=== PATIENT | female | born 1950 | race African-American/Black ===

== ENCOUNTER 2022-02-24 20:30 | Inpatient (IN) | payer MEDICARE, OTHER ==
[~2022-02-24] VITALS: Ht 165.1 cm; Wt 113.4 kg
[2022-02-24] MEDS ORDERED: IV NORMAL SALINE 1000 ML BAG IV ONE (21:15)
--- NOTE | 2022-02-24 22:12 | NUR ---
Rojas nurse from [facility] were the patient came from gave some Hx for patient.
[2022-02-24 22:29] LABS: HEMATOCRIT 33.8 % (31.2-41.9); MEAN CORPUSCULAR HEMOGLOBIN 28.3 uug (24.7-32.8); MEAN CORPUSCULAR VOLUME 88.7 fL (75.5-95.3); PLATELET COUNT (AUTO) 485 K/uL (179-408)
[2022-02-24 22:43] LABS: ALANINE AMINOTRANSFERASE 7 U/L (14-59); ALKALINE PHOSPHATASE 91 U/L (50-136); ASPARTATE AMINOTRANSFERASE 8 U/L (15-37); BILIRUBIN,DIRECT 0.1 mg/dL (0.0-0.2); BILIRUBIN,TOTAL 0.1 mg/dL (0.2-1.0); CARBON DIOXIDE 32 mmol/L (21-32); CHLORIDE 99 mmol/L (98-107); CREATININE 1.5 mg/dL (0.6-1.3); GLUCOSE 262 mg/dL (74-106); POTASSIUM 4.9 mmol/L (3.5-5.1); TOTAL PROTEIN, SERUM 8.1 g/dL (6.4-8.2); UREA NITROGEN, BLOOD 30 mg/dL (7-18)
[2022-02-24 23:06] LABS: *BILIRUBIN,URIN NEGATIVE (NEGATIVE); *BLOOD, URINE 3+ (NEGATIVE); *KETONES,URINE NEGATIVE (NEGATIVE); *UROBILINOGEN,URINE 0.2 E.U./dl (NORMAL); LEUKOCYTE ESTERASE ,URINE 1+ (NEGATIVE); NITRITE, URINE NEGATIVE (NEGATIVE); UGLUCOSE NEGATIVE (NEGATIVE)
[2022-02-24 23:07] LABS: *COLOR,URINE LIGHT YELLOW (YELLOW)
[2022-02-24 23:08] LABS: *CLARITY,URINE SLIGHTLY CLOUDY (CLEAR)
[2022-02-24 23:26] LABS: RBC,URINE TNTC /HPF (0-3); WBC,URINE 20-50 /HPF (0-3)
[2022-02-24 23:27] LABS: BACTERIA,URINE MODERATE /HPF (NONE SEEN); SQUAMOUS EPITHELIAL CELL,UR MANY /HPF (NONE SEEN)
[2022-02-25] MEDS ORDERED: LIDOCAINE HCL 1% 20 ML VIAL IJ ONE
[2022-02-25] MEDS ORDERED: LIDOCAINE HCL 1% 20 ML VIAL ONE (00:05)
[2022-02-25] MEDS ORDERED: diclofenac TOP (00:52)
[2022-02-25] MEDS ORDERED: CARB15DR OP (00:52)
[2022-02-25] MEDS ORDERED: SIME80TA PO (00:52)
[2022-02-25] MEDS ORDERED: LIDO30AD10 TD (00:52)
[2022-02-25] MEDS ORDERED: ETHA25TA4 PO (00:52)
[2022-02-25] MEDS ORDERED: ROSU10TA2 PO (00:52)
[2022-02-25] MEDS ORDERED: HYDR200T4 PO (00:52)
[2022-02-25] MEDS ORDERED: CLOP75TA33 PO (00:52)
[2022-02-25] MEDS ORDERED: CETI10CA8 PO (00:52)
[2022-02-25] MEDS ORDERED: MAGN400C PO (00:52)
[2022-02-25] MEDS ORDERED: GABA-532 PO (00:52)
[2022-02-25] MEDS ORDERED: FAMO20TA8 PO (00:52)
[2022-02-25] MEDS ORDERED: AMLO-212 PO (00:52)
[2022-02-25] MEDS ORDERED: FLUT1DIS27 IH (00:52)
[2022-02-25] MEDS ORDERED: FOLI1TAB94 PO (00:52)
[2022-02-25] MEDS ORDERED: MELA3TAB41 PO (00:52)
[2022-02-25] MEDS ORDERED: CYAN100T44 PO (00:52)
[2022-02-25] MEDS ORDERED: POLY17PO4 PO (00:52)
[2022-02-25] MEDS ORDERED: METF-442 PO (00:52)
[2022-02-25] MEDS ORDERED: SEMA0.25 SQ (00:52)
[2022-02-25] MEDS ORDERED: ACET-73 PO (00:52)
[2022-02-25] MEDS ORDERED: SACU1TAB PO (00:52)
[2022-02-25] MEDS ORDERED: CHOL400T28 PO (00:52)
[2022-02-25] MEDS ORDERED: DOCU283E7 PR (00:52)
[2022-02-25] MEDS ORDERED: AZITHROMYCIN IV 500 MG in IV DEXTROSE 5% 250 ML IV ONE (01:45)
[2022-02-25] MEDS ORDERED: CEFTRIAXONE 1 G in IV DEXTROSE 5% 50 ML IV ONE (01:45)
[2022-02-25] MEDS ORDERED: IV NS 1000 ML 1,000 ML IV ONE (02:30)
[2022-02-25] MEDS ORDERED: CEFTRIAXONE /D5W 50ML IVPB **ER PYXIS IV ONE (02:37)
[2022-02-25] MEDS ORDERED: AZITHROMYCIN 500MG/ D5W 250ML IVPB **ER PYXIS ONLY IV ONE (02:37)
--- NOTE | 2022-02-25 02:42 | NUR ---
No changes in LOC. No AMS. A/Ox1. Sammarinese speaking. Non-ambulatory.
[2022-02-25] MEDS ORDERED: MORPHINE SULFATE 2 MG/1 ML DISP.SYRIN ONE (03:55)
[2022-02-25] MEDS ORDERED: MORPHINE SULFATE 2 MG/1 ML DISP.SYRIN IV ONE (04:00)
--- NOTE | 2022-02-25 04:04 | NUR ---
Called [facility] for panel call. Dr. Hopkins coupon clerk.
[2022-02-25] MEDS ORDERED: MORPHINE SULFATE 2 MG/1 ML DISP.SYRIN IV PRN (04:30)
[2022-02-25] MEDS ORDERED: DEXTROSE 50% 50 ML DISP.SYRIN IV PRN (04:30)
[2022-02-25] MEDS ORDERED: ALBUTEROL SULFATE 8 GM HFA.AER.AD IH PRN (04:30)
[2022-02-25] MEDS ORDERED: ONDANSETRON 4 MG/2 ML VIAL IV PRN (04:30)
[2022-02-25] MEDS ORDERED: hydrALAZINE HCL 20 MG/1 ML VIAL IV PRN (04:30)
[2022-02-25] MEDS ORDERED: ACETAMINOPHEN 325 MG TABLET PO PRN (04:30)
--- NOTE | 2022-02-25 04:30 | NUR ---
Patient will be transfered to [address] [place] [address] during day shift. welfare project manager is unable to accept anymore pateints at this time.
[2022-02-25] MEDS ORDERED: GABAPENTIN 300 MG CAPSULE ONE (06:21)
[2022-02-25] MEDS: GABAPENTIN 300 MG CAPSULE PO SCH ×3 (06:24→21:00)
[2022-02-25] MEDS: BLOOD SUGAR DIAGNOSTIC 1 EACH STRIP VI SCH ×4 (07:30→20:40)
[2022-02-25] MEDS ORDERED: ALBUTEROL SULFATE 2.5 MG/3 ML NEBU NEB PRN (08:00)
[2022-02-25] MEDS ORDERED: LIDOCAINE 5% PATCH TD ONE (08:55)
[2022-02-25] MEDS ORDERED: MIRALAX 17 GM POWD.PACK ONE (08:55)
[2022-02-25] MEDS ORDERED: FAMOTIDINE 20 MG TABLET ONE (08:55)
[2022-02-25] MEDS ORDERED: CHOLECALCIFEROL 1,000 UNIT TABLET ONE (08:55)
[2022-02-25] MEDS ORDERED: CLOPIDOGREL 75 MG TABLET ONE (08:55)
[2022-02-25] MEDS ORDERED: MAGNESIUM OXIDE 400 MG TABLET ONE (08:55)
[2022-02-25] MEDS ORDERED: SIMETHICONE 80 MG TAB.CHEW ONE (08:56)
[2022-02-25] MEDS ORDERED: CYANOCOBALAMIN 1,000 MCG TABLET ONE (08:56)
[2022-02-25] MEDS ORDERED: HEPARIN SODIUM,PORCINE 5,000 UNITS/ML VIAL ONE (08:56)
[2022-02-25] MEDS ORDERED: AMLODIPINE 5 MG TABLET ONE (08:56)
[2022-02-25] MEDS ORDERED: FOLIC ACID 1 MG TABLET ONE (08:56)
[2022-02-25] MEDS: FAMOTIDINE 20 MG TABLET PO SCH (08:59)
[2022-02-25] MEDS: SIMETHICONE 80 MG TAB.CHEW PO SCH (08:59)
[2022-02-25] MEDS: MIRALAX 17 GM POWD.PACK PO SCH (08:59)
[2022-02-25] MEDS: AMLODIPINE 5 MG TABLET PO SCH (08:59)
[2022-02-25] MEDS: CEFEPIME HCL 2 G in IV DEXTROSE 5% 100 ML IV SCH ×3 (08:59→20:17)
[2022-02-25] MEDS: MAGNESIUM OXIDE 400 MG TABLET PO SCH ×2 (08:59→18:04)
[2022-02-25] MEDS: FLUTICASONE/VILANTEROL 1 EACH BLST.W.DEV INH SCH (08:59)
[2022-02-25] MEDS: FOLIC ACID 1 MG TABLET PO SCH (08:59)
[2022-02-25] MEDS: CHOLECALCIFEROL 1,000 UNIT TABLET PO SCH (09:00)
[2022-02-25] MEDS: CLOPIDOGREL 75 MG TABLET PO SCH (09:00)
[2022-02-25] MEDS ORDERED: CEFEPIME HCL 1 G in IV DEXTROSE 5% 50 ML IV SCH (09:00)
[2022-02-25] MEDS: HEPARIN SODIUM,PORCINE 5,000 UNITS/ML VIAL SQ SCH ×2 (09:00→18:05)
[2022-02-25] MEDS: CYANOCOBALAMIN 1,000 MCG TABLET PO SCH (09:00)
[2022-02-25] MEDS ORDERED: LIDOCAINE 5% PATCH TD SCH (09:00)
[2022-02-25] MEDS ORDERED: FLUTICASONE/SALMETEROL 250/50 INHALER INH SCH (09:00)
[2022-02-25] MEDS: HYDROXYCHLOROQUINE SULFATE 200 MG TABLET PO SCH (09:00)
[2022-02-25 11:52] VITALS: BP 151/75
[2022-02-25] MEDS: INSULIN REGULAR, HUMAN 300 UNIT/3 ML VIAL SQ PRN ×3 (11:54→20:43)
--- NOTE | 2022-02-25 13:00 | NUR ---
Patient is able to swallow and chew her food as well as able to communicate
--- NOTE | 2022-02-25 13:00 | NUR ---
Upon coming into the 3rd floor patient is alert and was responsive to questions asked when obtaining history. 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 she is fall risk. Fed patient, she was able to chew and swallow her her lunch. -KG (NS)
[2022-02-25] MEDS ORDERED: FLUT1DIS28 IH (16:09)
[2022-02-25] MEDS ORDERED: INSU100V11 SQ (16:13)
[2022-02-25] MEDS ORDERED: IPRA0.2S48 NEB (16:13)
[2022-02-25] MEDS ORDERED: LEVA1.2543 IH (16:13)
[2022-02-25] MEDS ORDERED: METH57CR22 TP (16:13)
[2022-02-25] MEDS ORDERED: LEVA1.2528 IH (16:13)
[2022-02-25] MEDS ORDERED: SODI15VI10 IH (16:15)
[2022-02-25] MEDS ORDERED: MAG355OR18 PO (16:15)
[2022-02-25] MEDS ORDERED: CHLO473M3 MM (16:15)
[2022-02-25] MEDS ORDERED: TIOT18CA3 IH (16:16)
[2022-02-25 16:35] VITALS: BP 148/74
--- NOTE | 2022-02-25 18:36 | NUR ---
no distress noted, tele remains SR, fed with meals- tolerated well pate cath draining yellow urine with good output, all needs attended and met, repositioned q2h with heel protectors on,
[2022-02-25 20:00] VITALS: BP 141/69
[2022-02-25] MEDS: ATORVASTATIN 20 MG TABLET PO SCH (20:16)
[2022-02-25] MEDS: METOPROLOL TARTRATE 25 MG TABLET PO SCH (20:16)
[2022-02-25] MEDS: MELATONIN 3 MG TABLET PO SCH (20:16)
[2022-02-25] MEDS ORDERED: Medication Not On Formulary EA (Rosuvastatin Calcium (Crestor) 10 MG) PO SCH (21:00)
[2022-02-26] VITALS: BP 140/72
[2022-02-26 04:00] VITALS: BP 140/76
[2022-02-26] MEDS: GABAPENTIN 300 MG CAPSULE PO SCH ×3 (06:29→22:15)
[2022-02-26] MEDS: BLOOD SUGAR DIAGNOSTIC 1 EACH STRIP VI SCH ×4 (06:54→21:08)
[2022-02-26] MEDS: INSULIN REGULAR, HUMAN 300 UNIT/3 ML VIAL SQ PRN ×4 (07:57→21:15)
[2022-02-26] MEDS: FLUTICASONE/VILANTEROL 1 EACH BLST.W.DEV INH SCH (09:00)
[2022-02-26] MEDS: CEFEPIME HCL 2 G in IV DEXTROSE 5% 100 ML IV SCH ×2 (10:13→20:44)
[2022-02-26] MEDS: CHOLECALCIFEROL 1,000 UNIT TABLET PO SCH (10:14)
[2022-02-26] MEDS: MIRALAX 17 GM POWD.PACK PO SCH (10:14)
[2022-02-26] MEDS: LIDOCAINE 5% PATCH TD SCH (10:14)
[2022-02-26] MEDS: SIMETHICONE 80 MG TAB.CHEW PO SCH (10:15)
[2022-02-26] MEDS: CLOPIDOGREL 75 MG TABLET PO SCH (10:15)
[2022-02-26] MEDS: FAMOTIDINE 20 MG TABLET PO SCH (10:15)
[2022-02-26] MEDS: FOLIC ACID 1 MG TABLET PO SCH (10:15)
[2022-02-26] MEDS: METOPROLOL TARTRATE 25 MG TABLET PO SCH ×2 (10:16→20:45)
[2022-02-26] MEDS: AMLODIPINE 5 MG TABLET PO SCH (10:16)
[2022-02-26] MEDS: CYANOCOBALAMIN 1,000 MCG TABLET PO SCH (10:16)
[2022-02-26] MEDS: MAGNESIUM OXIDE 400 MG TABLET PO SCH ×2 (10:16→16:43)
[2022-02-26] MEDS: HYDROXYCHLOROQUINE SULFATE 200 MG TABLET PO SCH (10:17)
[2022-02-26] MEDS: HEPARIN SODIUM,PORCINE 5,000 UNITS/ML VIAL SQ SCH ×2 (10:18→16:43)
[2022-02-26 12:05] VITALS: BP 139/56
[2022-02-26 16:21] VITALS: BP 132/67
[2022-02-26 20:00] VITALS: BP 142/58
[2022-02-26] MEDS: MELATONIN 3 MG TABLET PO SCH (20:45)
[2022-02-26] MEDS: ATORVASTATIN 20 MG TABLET PO SCH (20:45)
[2022-02-27] VITALS: BP 108/58
[2022-02-27 04:00] VITALS: BP 124/67
[2022-02-27] MEDS: GABAPENTIN 300 MG CAPSULE PO SCH ×3 (06:05→22:13)
[2022-02-27] MEDS: BLOOD SUGAR DIAGNOSTIC 1 EACH STRIP VI SCH ×4 (06:37→20:35)
--- NOTE | 2022-02-27 07:17 | NUR ---
Slept intermittently, easy to arouse alert and verbally conversant. No resp distress noted. Needs assessed and attended to. Kept bed in locked and low position with call light within easy reach.
[2022-02-27] MEDS: INSULIN REGULAR, HUMAN 300 UNIT/3 ML VIAL SQ PRN ×4 (08:12→20:55)
[2022-02-27] MEDS: CYANOCOBALAMIN 1,000 MCG TABLET PO SCH (09:23)
[2022-02-27] MEDS: CHOLECALCIFEROL 1,000 UNIT TABLET PO SCH (09:23)
[2022-02-27] MEDS: MIRALAX 17 GM POWD.PACK PO SCH (09:23)
[2022-02-27] MEDS: LIDOCAINE 5% PATCH TD SCH (09:23)
[2022-02-27] MEDS: AMLODIPINE 5 MG TABLET PO SCH (09:24)
[2022-02-27] MEDS: FOLIC ACID 1 MG TABLET PO SCH (09:24)
[2022-02-27] MEDS: FAMOTIDINE 20 MG TABLET PO SCH (09:24)
[2022-02-27] MEDS: SIMETHICONE 80 MG TAB.CHEW PO SCH (09:24)
[2022-02-27] MEDS: METOPROLOL TARTRATE 25 MG TABLET PO SCH ×2 (09:24→20:51)
[2022-02-27] MEDS: CLOPIDOGREL 75 MG TABLET PO SCH (09:24)
[2022-02-27] MEDS: MAGNESIUM OXIDE 400 MG TABLET PO SCH ×2 (09:25→16:59)
[2022-02-27] MEDS: FLUTICASONE/VILANTEROL 1 EACH BLST.W.DEV INH SCH (09:25)
[2022-02-27] MEDS: CEFEPIME HCL 2 G in IV DEXTROSE 5% 100 ML IV SCH ×2 (09:25→20:49)
[2022-02-27] MEDS: MUPIROCIN 2% OINT 22 GM TUBE NS SCH ×2 (09:26→20:52)
[2022-02-27] MEDS: HYDROXYCHLOROQUINE SULFATE 200 MG TABLET PO SCH (09:27)
[2022-02-27] MEDS: HEPARIN SODIUM,PORCINE 5,000 UNITS/ML VIAL SQ SCH ×2 (09:27→17:01)
--- NOTE | 2022-02-27 10:33 | NUR ---
picc line insertion ordered
[2022-02-27 11:36] VITALS: BP 119/68
[2022-02-27 11:45] LABS: HEMATOCRIT 31.7 % (31.2-41.9); MEAN CORPUSCULAR HEMOGLOBIN 28.5 uug (24.7-32.8); PLATELET COUNT (AUTO) 423 K/uL (179-408)
[2022-02-27 11:51] LABS: BILIRUBIN,TOTAL 0.1 mg/dL (0.2-1.0); CREATININE 1.4 mg/dL (0.6-1.3); MAGNESIUM 2.2 mg/dL (1.8-2.4); POTASSIUM 4.5 mmol/L (3.5-5.1); TOTAL PROTEIN, SERUM 7.7 g/dL (6.4-8.2)
[2022-02-27 12:20] LABS: THYROID STIMULATING HORMONE 1.743 mIU/mL (0.358-3.740)
[2022-02-27 15:16] VITALS: BP 121/73
[2022-02-27] MEDS: PROTEIN SUPPLEMENT (PROSTAT) 30 ML LIQUID PO SCH (17:10)
--- NOTE | 2022-02-27 18:00 | NUR ---
PT COMPLAIN OF DISCOMFORT ON LEFT GROIN AREA. REMOVED 3 LUMEN FEMORAL CATH.
[2022-02-27 20:00] VITALS: BP 148/71
[2022-02-27] MEDS: MELATONIN 3 MG TABLET PO SCH (20:51)
[2022-02-27] MEDS: ATORVASTATIN 20 MG TABLET PO SCH (20:51)
[2022-02-28 04:00] VITALS: BP 157/67
[2022-02-28] MEDS: GABAPENTIN 300 MG CAPSULE PO SCH ×3 (05:41→22:01)
[2022-02-28] MEDS: BLOOD SUGAR DIAGNOSTIC 1 EACH STRIP VI SCH ×4 (06:39→21:10)
[2022-02-28] MEDS: SIMETHICONE 80 MG TAB.CHEW PO SCH (08:57)
[2022-02-28] MEDS: CLOPIDOGREL 75 MG TABLET PO SCH (08:58)
[2022-02-28] MEDS: CHOLECALCIFEROL 1,000 UNIT TABLET PO SCH (08:58)
[2022-02-28] MEDS: CYANOCOBALAMIN 1,000 MCG TABLET PO SCH (08:58)
[2022-02-28] MEDS: FOLIC ACID 1 MG TABLET PO SCH (08:58)
[2022-02-28] MEDS: FAMOTIDINE 20 MG TABLET PO SCH (08:58)
[2022-02-28] MEDS: METOPROLOL TARTRATE 25 MG TABLET PO SCH ×2 (08:58→21:10)
[2022-02-28] MEDS: MAGNESIUM OXIDE 400 MG TABLET PO SCH ×2 (08:58→16:56)
[2022-02-28] MEDS: HEPARIN SODIUM,PORCINE 5,000 UNITS/ML VIAL SQ SCH ×2 (08:59→16:57)
[2022-02-28] MEDS: AMLODIPINE 5 MG TABLET PO SCH (08:59)
[2022-02-28] MEDS: CEFEPIME HCL 2 G in IV DEXTROSE 5% 100 ML IV SCH ×2 (09:00→21:08)
[2022-02-28] MEDS: LIDOCAINE 5% PATCH TD SCH (09:01)
[2022-02-28] MEDS: MIRALAX 17 GM POWD.PACK PO SCH (09:02)
[2022-02-28] MEDS: PROTEIN SUPPLEMENT (PROSTAT) 30 ML LIQUID PO SCH ×2 (09:02→16:56)
[2022-02-28] MEDS: HYDROXYCHLOROQUINE SULFATE 200 MG TABLET PO SCH (09:02)
[2022-02-28] MEDS: INSULIN REGULAR, HUMAN 300 UNIT/3 ML VIAL SQ PRN ×4 (09:06→21:15)
[2022-02-28] MEDS: FLUTICASONE/VILANTEROL 1 EACH BLST.W.DEV INH SCH (09:10)
[2022-02-28] MEDS: MUPIROCIN 2% OINT 22 GM TUBE NS SCH ×2 (09:11→21:08)
[2022-02-28 11:42] VITALS: BP 149/73
--- NOTE | 2022-02-28 12:11 | NUR ---
WOUND CARE CONSULT: PT PRESENTS WITH SACRAL INTACT DEEP TISSUE INJURY WITH SCARRING, PRESENT ON ADMISSION. RECOMMENDATIONS MADE FOR SKIN PROTECTION. DISCUSSED WITH NURSING STAFF. IN AGREEEMNT WITH PLAN OF CARE. Addendum: 02/28/22 at 1213 by EDDIE VILLATORO RN Amended: Links added.
[2022-02-28 15:07] VITALS: BP 132/67
--- NOTE | 2022-02-28 18:46 | NUR ---
PT IS A/O X 4, ABLE TO COMMUNICATE NEEDS, PT IS COOPERATIVE WITH CARE, TAKES MEDICATION WHOLE. WOUND CONSULT COMPLETED TODAY , COMFORT MEASURES PROVIDED, CALL LIGHT WITHIN REACH, WILL ENDORSE.
[2022-02-28 20:00] VITALS: BP 140/72
[2022-02-28] MEDS: MELATONIN 3 MG TABLET PO SCH (21:09)
[2022-02-28] MEDS: ATORVASTATIN 20 MG TABLET PO SCH (21:09)
[2022-03-01 04:36] VITALS: BP 157/65
[2022-03-01] MEDS: GABAPENTIN 300 MG CAPSULE PO SCH ×3 (05:47→21:52)
[2022-03-01] MEDS: BLOOD SUGAR DIAGNOSTIC 1 EACH STRIP VI SCH ×4 (06:47→21:13)
[2022-03-01] MEDS: INSULIN REGULAR, HUMAN 300 UNIT/3 ML VIAL SQ PRN ×4 (08:07→21:20)
[2022-03-01] MEDS: LIDOCAINE 5% PATCH TD SCH (08:59)
[2022-03-01] MEDS: CEFEPIME HCL 2 G in IV DEXTROSE 5% 100 ML IV SCH ×2 (08:59→21:12)
[2022-03-01] MEDS: MIRALAX 17 GM POWD.PACK PO SCH (08:59)
[2022-03-01] MEDS: METOPROLOL TARTRATE 25 MG TABLET PO SCH ×3 (09:00→21:12)
[2022-03-01] MEDS: FAMOTIDINE 20 MG TABLET PO SCH (09:08)
[2022-03-01] MEDS: CHOLECALCIFEROL 1,000 UNIT TABLET PO SCH (09:08)
[2022-03-01] MEDS: FOLIC ACID 1 MG TABLET PO SCH (09:08)
[2022-03-01] MEDS: CYANOCOBALAMIN 1,000 MCG TABLET PO SCH (09:08)
[2022-03-01] MEDS: SIMETHICONE 80 MG TAB.CHEW PO SCH (09:08)
[2022-03-01] MEDS: HEPARIN SODIUM,PORCINE 5,000 UNITS/ML VIAL SQ SCH ×2 (09:08→16:46)
[2022-03-01] MEDS: CLOPIDOGREL 75 MG TABLET PO SCH (09:09)
[2022-03-01] MEDS: MAGNESIUM OXIDE 400 MG TABLET PO SCH ×2 (09:13→16:46)
[2022-03-01] MEDS: AMLODIPINE 5 MG TABLET PO SCH (09:17)
[2022-03-01] MEDS: FLUTICASONE/VILANTEROL 1 EACH BLST.W.DEV INH SCH (09:18)
[2022-03-01] MEDS: MUPIROCIN 2% OINT 22 GM TUBE NS SCH ×2 (09:18→21:13)
[2022-03-01] MEDS: PROTEIN SUPPLEMENT (PROSTAT) 30 ML LIQUID PO SCH ×2 (09:19→17:30)
[2022-03-01] MEDS: HYDROXYCHLOROQUINE SULFATE 200 MG TABLET PO SCH (09:27)
[2022-03-01 11:14] VITALS: BP 138/67
[2022-03-01 15:09] VITALS: BP 142/67
--- NOTE | 2022-03-01 16:50 | NUR ---
Patient is cooperative, didn't complain of pain, patient is alert and oriented. No distress is noted, patient took all her medications whole.
[2022-03-01 21:06] VITALS: BP 152/75
[2022-03-01] MEDS: MELATONIN 3 MG TABLET PO SCH (21:12)
[2022-03-01] MEDS: ATORVASTATIN 20 MG TABLET PO SCH (21:12)
[2022-03-01] MEDS ORDERED: DEXTROSE 50% 50 ML DISP.SYRIN IV PRN (22:30)
[2022-03-02 04:15] VITALS: BP 134/69
[2022-03-02] MEDS: GABAPENTIN 300 MG CAPSULE PO SCH ×3 (06:06→22:58)
[2022-03-02] MEDS: BLOOD SUGAR DIAGNOSTIC 1 EACH STRIP VI SCH ×4 (06:46→20:41)
[2022-03-02] MEDS: MUPIROCIN 2% OINT 22 GM TUBE NS SCH ×2 (09:00→21:36)
[2022-03-02] MEDS: PROTEIN SUPPLEMENT (PROSTAT) 30 ML LIQUID PO SCH ×2 (09:00→17:14)
[2022-03-02] MEDS: INSULIN REGULAR, HUMAN 300 UNIT/3 ML VIAL SQ PRN ×4 (09:55→23:35)
[2022-03-02] MEDS: FLUTICASONE/VILANTEROL 1 EACH BLST.W.DEV INH SCH (09:55)
[2022-03-02] MEDS: CHOLECALCIFEROL 1,000 UNIT TABLET PO SCH (09:55)
[2022-03-02] MEDS: CLOPIDOGREL 75 MG TABLET PO SCH (09:56)
[2022-03-02] MEDS: FOLIC ACID 1 MG TABLET PO SCH (09:56)
[2022-03-02] MEDS: MAGNESIUM OXIDE 400 MG TABLET PO SCH ×2 (09:56→17:13)
[2022-03-02] MEDS: HEPARIN SODIUM,PORCINE 5,000 UNITS/ML VIAL SQ SCH ×2 (09:56→17:14)
[2022-03-02] MEDS: SIMETHICONE 80 MG TAB.CHEW PO SCH (09:56)
[2022-03-02] MEDS: FAMOTIDINE 20 MG TABLET PO SCH (09:56)
[2022-03-02] MEDS: CYANOCOBALAMIN 1,000 MCG TABLET PO SCH (09:56)
[2022-03-02] MEDS: METOPROLOL TARTRATE 25 MG TABLET PO SCH ×2 (10:00→20:39)
[2022-03-02] MEDS: AMLODIPINE 5 MG TABLET PO SCH (10:00)
[2022-03-02] MEDS: MIRALAX 17 GM POWD.PACK PO SCH (10:01)
[2022-03-02] MEDS: LIDOCAINE 5% PATCH TD SCH (10:01)
[2022-03-02] MEDS: HYDROXYCHLOROQUINE SULFATE 200 MG TABLET PO SCH (10:02)
[2022-03-02] MEDS: CEFEPIME HCL 2 G in IV DEXTROSE 5% 100 ML IV SCH ×2 (10:47→20:48)
[2022-03-02 11:54] VITALS: BP 153/75
[2022-03-02 17:07] VITALS: BP 140/70
[2022-03-02] MEDS ORDERED: DEXTROSE 50% 50 ML DISP.SYRIN IV PRN (19:00)
[2022-03-02] MEDS ORDERED: INSULIN REGULAR, HUMAN 300 UNIT/3 ML VIAL SQ PRN (19:00)
[2022-03-02 20:06] VITALS: BP 151/63
[2022-03-02] MEDS: MELATONIN 3 MG TABLET PO SCH (20:38)
[2022-03-02] MEDS: ATORVASTATIN 20 MG TABLET PO SCH (20:38)
[2022-03-02] MEDS: INSULIN GLARGINE,HUM 300 UNITS/3 ML CARTRIDGE SQ SCH (20:46)
[2022-03-02] MEDS ORDERED: BLOOD SUGAR DIAGNOSTIC 1 EACH STRIP VI SCH (21:00)
[2022-03-03 04:10] VITALS: BP 153/71
[2022-03-03] MEDS: BLOOD SUGAR DIAGNOSTIC 1 EACH STRIP VI SCH ×4 (06:35→20:41)
[2022-03-03] MEDS: GABAPENTIN 300 MG CAPSULE PO SCH ×3 (06:35→21:10)
[2022-03-03 08:03] LABS: HEMATOCRIT 31.1 % (31.2-41.9); MEAN CORPUSCULAR HEMOGLOBIN 28.8 uug (24.7-32.8); MEAN CORPUSCULAR VOLUME 87.7 fL (75.5-95.3); PLATELET COUNT (AUTO) 534 K/uL (179-408)
[2022-03-03 08:13] LABS: BILIRUBIN,TOTAL 0.2 mg/dL (0.2-1.0); CREATININE 1.3 mg/dL (0.6-1.3); MAGNESIUM 2.7 mg/dL (1.8-2.4); PHOSPHOROUS 4.4 mg/dL (2.5-4.9); POTASSIUM 4.5 mmol/L (3.5-5.1); TOTAL PROTEIN, SERUM 8.3 g/dL (6.4-8.2)
[2022-03-03] MEDS: HEPARIN SODIUM,PORCINE 5,000 UNITS/ML VIAL SQ SCH ×2 (09:05→16:22)
[2022-03-03] MEDS: FOLIC ACID 1 MG TABLET PO SCH (09:05)
[2022-03-03] MEDS: CYANOCOBALAMIN 1,000 MCG TABLET PO SCH (09:06)
[2022-03-03] MEDS: SIMETHICONE 80 MG TAB.CHEW PO SCH (09:06)
[2022-03-03] MEDS: METOPROLOL TARTRATE 25 MG TABLET PO SCH ×2 (09:10→20:46)
[2022-03-03] MEDS: CLOPIDOGREL 75 MG TABLET PO SCH (09:11)
[2022-03-03] MEDS: CHOLECALCIFEROL 1,000 UNIT TABLET PO SCH (09:11)
[2022-03-03] MEDS: MAGNESIUM OXIDE 400 MG TABLET PO SCH (09:11)
[2022-03-03] MEDS: FAMOTIDINE 20 MG TABLET PO SCH (09:11)
[2022-03-03] MEDS: LIDOCAINE 5% PATCH TD SCH (09:11)
[2022-03-03] MEDS: MUPIROCIN 2% OINT 22 GM TUBE NS SCH ×2 (09:13→20:57)
[2022-03-03] MEDS: CEFEPIME HCL 2 G in IV DEXTROSE 5% 100 ML IV SCH (09:13)
[2022-03-03] MEDS: HYDROXYCHLOROQUINE SULFATE 200 MG TABLET PO SCH (09:13)
[2022-03-03] MEDS: AMLODIPINE 5 MG TABLET PO SCH (09:15)
[2022-03-03] MEDS: FLUTICASONE/VILANTEROL 1 EACH BLST.W.DEV INH SCH (09:15)
[2022-03-03] MEDS: MIRALAX 17 GM POWD.PACK PO SCH (09:17)
[2022-03-03] MEDS: PROTEIN SUPPLEMENT (PROSTAT) 30 ML LIQUID PO SCH ×2 (09:38→16:31)
[2022-03-03 11:33] VITALS: BP 148/64
[2022-03-03] MEDS: INSULIN REGULAR, HUMAN 300 UNIT/3 ML VIAL SQ PRN ×3 (12:21→20:47)
[2022-03-03 16:00] VITALS: BP 114/60
[2022-03-03] MEDS ORDERED: MAGNESIUM OXIDE 400 MG TABLET PO SCH (17:00)
[2022-03-03] MEDS: MELATONIN 3 MG TABLET PO SCH (20:46)
[2022-03-03] MEDS: INSULIN GLARGINE,HUM 300 UNITS/3 ML CARTRIDGE SQ SCH (20:47)
[2022-03-03] MEDS: ATORVASTATIN 20 MG TABLET PO SCH (20:47)
[2022-03-03 20:52] VITALS: BP 126/66
[2022-03-04 04:28] VITALS: BP 148/69
[2022-03-04] MEDS: GABAPENTIN 300 MG CAPSULE PO SCH ×2 (05:56→13:29)
[2022-03-04] MEDS: BLOOD SUGAR DIAGNOSTIC 1 EACH STRIP VI SCH ×3 (06:13→17:02)
[2022-03-04] MEDS: INSULIN REGULAR, HUMAN 300 UNIT/3 ML VIAL SQ PRN ×3 (08:26→17:06)
[2022-03-04] MEDS: FLUTICASONE/VILANTEROL 1 EACH BLST.W.DEV INH SCH (09:16)
[2022-03-04] MEDS: MUPIROCIN 2% OINT 22 GM TUBE NS SCH (09:16)
[2022-03-04] MEDS: LIDOCAINE 5% PATCH TD SCH (09:17)
[2022-03-04] MEDS: PROTEIN SUPPLEMENT (PROSTAT) 30 ML LIQUID PO SCH ×2 (09:17→17:03)
[2022-03-04] MEDS: SIMETHICONE 80 MG TAB.CHEW PO SCH (09:18)
[2022-03-04] MEDS: FAMOTIDINE 20 MG TABLET PO SCH (09:18)
[2022-03-04] MEDS: CHOLECALCIFEROL 1,000 UNIT TABLET PO SCH (09:18)
[2022-03-04] MEDS: CLOPIDOGREL 75 MG TABLET PO SCH (09:18)
[2022-03-04] MEDS: METOPROLOL TARTRATE 25 MG TABLET PO SCH (09:19)
[2022-03-04] MEDS: AMLODIPINE 5 MG TABLET PO SCH (09:19)
[2022-03-04] MEDS: CYANOCOBALAMIN 1,000 MCG TABLET PO SCH (09:19)
[2022-03-04] MEDS: FOLIC ACID 1 MG TABLET PO SCH (09:19)
[2022-03-04] MEDS: HYDROXYCHLOROQUINE SULFATE 200 MG TABLET PO SCH (09:19)
[2022-03-04] MEDS: MIRALAX 17 GM POWD.PACK PO SCH (09:20)
[2022-03-04 12:10] VITALS: BP 154/64
[2022-03-04 16:00] VITALS: BP 132/65
--- NOTE | 2022-03-04 17:50 | NUR ---
Patient to be discharged to [facility]. Report called to THI Willson. Will prepare transfer pack and prepare patient for discharge.
--- NOTE | 2022-03-04 19:01 | NUR ---
Ambulance here to greens picker patient for discharge back to [facility]. No s/s of discomfort or distress. PICC line to right upper arm removed, tolerated well. Martinez remains. Transfer packet given to ambulance tech's. Patient has no belongings. Daughter aware of discharge back to [facility].
== END 2022-03-04 19:15 | DRG 871 ==
LOC: ER 20:30 → TELE3 02-25 04:43 → MEDSURG3 02-27 09:24
PROVIDERS: ADMIT Internal Medicine; ATTEND Student in an Organized Health Care Education/Training Program
PROC: 02HV33Z Insertion of Infusion Device into Superior Vena Cava, Percutaneous Approach (ICD-10-PCS; principal; 2022-02-27)
PROC: B548ZZA Ultrasonography of Superior Vena Cava, Guidance (ICD-10-PCS; 2022-02-27)
DX: A41.9 Sepsis, unspecified organism (principal); G92.8 Other toxic encephalopathy; N17.0 Acute kidney failure with tubular necrosis; J69.0 Pneumonitis due to inhalation of food and vomit; N39.0 Urinary tract infection, site not specified; Z68.41 Body mass index [BMI] 40.0-44.9, adult; I13.0 Hypertensive heart and chronic kidney disease with heart failure and stage 1 through stage 4 chronic kidney disease, or unspecified chronic kidney disease; I50.30 Unspecified diastolic (congestive) heart failure; M35.89 Other specified systemic involvement of connective tissue; Z20.822 Contact with and (suspected) exposure to COVID-19; E11.22 Type 2 diabetes mellitus with diabetic chronic kidney disease; E78.5 Hyperlipidemia, unspecified; M79.7 Fibromyalgia; Z86.16 Personal history of COVID-19; G89.29 Other chronic pain; Z87.01 Personal history of pneumonia (recurrent); G47.33 Obstructive sleep apnea (adult) (pediatric); K21.9 Gastro-esophageal reflux disease without esophagitis; H54.7 Unspecified visual loss; E66.9 Obesity, unspecified; R94.31 Abnormal electrocardiogram [ECG] [EKG]; I69.30 Unspecified sequelae of cerebral infarction; N18.9 Chronic kidney disease, unspecified
CPT/HCPCS: 36415; 36556; 36569; 51702; 71045; 83605; 83735; 84100; 84443; 84484; 85025; 87040; 87086; 93005; 93307; A4663; A6209; A6213; G0378; J0456; J0692; J0696; J1644; J1815; J2270; J3490; J7040